=== PATIENT | male | born 1950 | race Caucasian/White ===

== ENCOUNTER → 2020-11-30 | Outpatient (CLI) | payer MEDICARE ==
[~2020-11-30] MED LIST: ACID CONTROL150 MG PO; ASPIRIN81 MG PO; BRILINTA90 MG PO; CRESTOR20 MG PO; FISH OIL 10001000 MG PO; IMDUR ER TAB 3030 MG PO; LANTUS100 UNIT/1 SQ; LOPRESSOR 50 MG50 MG PO; LORTAB 7.5-3251 EACH PO; LOSARTAN-HCTZ1 EAC1 PO; METFORMIN HCL500 MG PO; METOPROLOL SUCC50 MG PO; NEURONTIN 300300 MG PO; POTASSIUM CHLO10 ME2 PO; RANEXA500 MG PO; TUDORZA PRESS400 MCG INH; VENTOLIN HFA 66.7 GM INH; VITAMIN D35000 UNI1 PO
== END ==
LOC: HEART 5 14:51
DX: J44.9 Chronic obstructive pulmonary disease, unspecified (principal)
CPT/HCPCS: 94060; 94729

== ENCOUNTER → 2021-07-03 | Outpatient (CLI) | payer MEDICARE | LOC: KOH-I 09:46 | DX: M25.512 Pain in left shoulder (principal); M19.012 Primary osteoarthritis, left shoulder | CPT/HCPCS: 73030 ==

== ENCOUNTER → 2022-01-01 | Outpatient (CLI) | payer MEDICARE | LOC: KOH-I 10:00 | DX: Z87.891 Personal history of nicotine dependence (principal); K80.20 Calculus of gallbladder without cholecystitis without obstruction | CPT/HCPCS: 71271 ==